=== PATIENT | male | born 1995 | race Caucasian/White ===

== ENCOUNTER 2021-12-12 00:32 | Emergency (ER) | payer OTHER ==
[~2021-12-12] VITALS: Ht 175.3 cm; Wt 81.8 kg
[2021-12-12] MEDS ORDERED: KETOROLAC TROMETHAMINE 30 MG/ML VIAL IM ONE (02:00)
[2021-12-12] MEDS ORDERED: ACETAMINOPHEN 500 MG TABLET PO ONE (02:00)
[2021-12-12 02:15] VITALS: BP 120/82
[2021-12-12] MEDS ORDERED: IBUP-2070 PO (02:21)
== END 2021-12-12 02:34 | disposition home or self-care (01) ==
LOC: EMS 00:33
DX: M77.8 Other enthesopathies, not elsewhere classified (principal); M19.90 Unspecified osteoarthritis, unspecified site; M10.9 Gout, unspecified
CPT/HCPCS: 73110; 73130; 96372; 99284; J1885